=== PATIENT | female | born 1945 | race Caucasian/White ===

== ENCOUNTER 2021-08-15 14:04 | Emergency (ER) | payer MEDICARE, OTHER ==
[~2021-08-15] VITALS: Ht 162.6 cm; Wt 58.1 kg
--- NOTE | 2021-08-15 14:20 | NUR ---
nirav, from snf, more altered than usual, Hx dementia, refused to eat x 2 days. The patient is alert and oriented x1. Able to make needs known verbally. In room air and denies SOB. Respiration regular and unlabored. Attached to the monitor. Will continue to monitor the patient.
[2021-08-15] MEDS ORDERED: IV NS 0.9% 1,000 ML BAG IV ONE (14:30)
--- NOTE | 2021-08-15 14:30 | NUR ---
urine collected and sent to the lab
--- NOTE | 2021-08-15 14:50 | NUR ---
IV LINE IS ESTABLISHED, BLOOD SPECIMEN COLLECTED AND SENT TO THE LAB. THE LINE IS SALINE LOCKED.
[2021-08-15 15:03] LABS: BASOPHILS % (AUTO) 0.3 % (0.0-2.0); EOSINOPHILS % (AUTO) 0.1 % (0.0-6.0); HEMATOCRIT 37 % (33-45); HEMOGLOBIN 12.2 g/dL (11.5-14.8); LYMPHOCYTES # (AUTO) 1.5 K/uL (0.8-4.8); LYMPHOCYTES % (AUTO) 12.6 % (20.0-44.0); MEAN CORPUSCULAR HGB CONC 33 g/dl (31.0-36.0); MEAN CORPUSCULAR VOLUME 88 fL (82-100); MONOCYTES # (AUTO) 0.7 K/uL (0.1-1.30); MONOCYTES % (AUTO) 5.6 % (2.0-12.0); NEUTROPHILS # (AUTO) 9.7 K/uL (1.8-8.9); NEUTROPHILS % (AUTO) 81.4 % (43.0-81.0); PLATELET COUNT (AUTO) 275 K/uL (150-450); RED BLOOD CELL COUNT(AUTO) 4.23 MIL/uL (4.0-5.2)
[2021-08-15 15:16] LABS: BILIRUBIN,URINE NEGATIVE (NEGATIVE); COLOR,URINE YELLOW (YELLOW); LEUKOCYTE ESTERASE ,URINE NEGATIVE (NEGATIVE); NITRITE, URINE NEGATIVE (NEGATIVE); PH,URINE 6.5 (5.0-8.0); PROTEIN,URINE NEGATIVE (NEGATIVE); UGLUCOSE NEGATIVE (NEGATIVE); UROBILINOGEN,URINE 0.2 EU/dL (0.2)
--- NOTE | 2021-08-15 15:29 | NUR ---
COVID SWAB DONE AND SENT TO LAB
[2021-08-15 15:36] LABS: BACTERIA,URINE 1+ /HPF (None Seen); WBC,URINE 0-2 /HPF (0-3)
[2021-08-15] MEDS ORDERED: diphenhydrAMINE HCL 50 MG/ML VIAL ONE (15:38)
[2021-08-15] MEDS ORDERED: HALOPERIDOL LACTATE INJ 5 MG/ML VIAL ONE (15:38)
[2021-08-15] MEDS ORDERED: LORAZEPAM INJ 2 MG/ML VIAL ONE ×2 (15:39→18:11)
[2021-08-15] MEDS ORDERED: diphenhydrAMINE HCL 50 MG/ML VIAL IV ONE (16:00)
[2021-08-15] MEDS ORDERED: LORAZEPAM INJ 2 MG/ML VIAL IVP ONE (16:00)
[2021-08-15] MEDS ORDERED: HALOPERIDOL LACTATE INJ 5 MG/ML VIAL IM ONE (16:00)
[2021-08-15 16:14] LABS: CALCIUM, SERUM 9.1 mg/dL (8.5-10.1); CARBON DIOXIDE 27 mmol/L (21-32); CHLORIDE 101 mmol/L (98-107); CREATININE 0.8 mg/dL (0.6-1.3); GLUCOSE 109 mg/dL (74-106); SODIUM SERUM 135 mmol/L (136-145); UREA NITROGEN, BLOOD 18 mg/dL (7-18)
[2021-08-15 16:29] LABS: ALANINE AMINOTRANSFERASE 15 U/L (12-78); ALBUMIN 3.8 g/dL (3.4-5.0); ALKALINE PHOSPHATASE 72 U/L (46-116); ASPARTATE AMINOTRANSFERASE 27 U/L (15-37); BILIRUBIN,TOTAL 0.4 mg/dL (0.2-1.0); TOTAL PROTEIN, SERUM 7.6 g/dL (6.4-8.2)
--- NOTE | 2021-08-15 17:15 | NUR ---
DERRICK LOPEZ [phone] LEFT VM
--- NOTE | 2021-08-15 18:01 | NUR ---
JESSICA CALLED SHE BE HERE AFTER CHANGE OF SHIFT.
--- NOTE | 2021-08-15 18:06 | NUR ---
PATIENT IS AGITATED. MADE MD AWARE.
[2021-08-15] MEDS ORDERED: LORAZEPAM INJ 2 MG/ML VIAL IV ONE (18:30)
--- NOTE | 2021-08-15 18:57 | NUR ---
PATIENT IN BED, ASLEEP, AROUSABLE BY VOICE. HOOKED TO MONITOR. VSS. KEPT WARM , SAFE AND COMFORTABLE.
--- NOTE | 2021-08-15 19:21 | NUR ---
PT RETURNED FROM CT
--- NOTE | 2021-08-15 19:22 | NUR ---
REPORT GIVEN TO MOHAN BEE FOR [facility]
--- NOTE | 2021-08-15 21:57 | NUR ---
RECEIVED CALL FROM JESSICA HURST 20 MINUTES
[2021-08-16] VITALS: BP 111/69
--- NOTE | 2021-08-16 00:37 | NUR ---
PT TO BE TRANSFERED TO [facility]. [phone].
--- NOTE | 2021-08-16 00:51 | NUR ---
REPORT GIVEN TO NURSE RAJAN. PT TO ER FIRST.
--- NOTE | 2021-08-16 00:57 | NUR ---
[facility] CALLED FOR TRANSPORT. ETA 20 MINUTES.
--- NOTE | 2021-08-16 01:16 | NUR ---
REPROT GIVEN TO EMS AT BEDSIDE
== END 2021-08-16 01:30 ==
LOC: ER 14:09
DX: F03.90 Unspecified dementia, unspecified severity, without behavioral disturbance, psychotic disturbance, mood disturbance, and anxiety (principal); R45.1 Restlessness and agitation; R91.8 Other nonspecific abnormal finding of lung field; Z20.822 Contact with and (suspected) exposure to COVID-19; F41.9 Anxiety disorder, unspecified; Z88.6 Allergy status to analgesic agent; Z88.0 Allergy status to penicillin; Z88.2 Allergy status to sulfonamides
CPT/HCPCS: 36415; 70450; 71045; 80048; 80076; 81001; 83605; 84145; 84484; 85025; 85730; 87040 ×2; 87081; 87086; 87426; 93005; 96361; 96372; 96374; 96375; 99285; J1200; J1630; J2060 ×2; J7030; C9803

== ENCOUNTER 2022-08-30 01:44 | Inpatient (IN) | payer MEDICARE, OTHER ==
[~2022-08-30] VITALS: Ht 152.4 cm; Wt 62.7 kg
--- NOTE | 2022-08-30 01:50 | NUR ---
[facility] PT IS ALERT AND ORIENTED. RR EVEN AND NON LABORED. CONNECTED TO POX AND HEART MONITOR. DENIES ANY CHEST PAIN OR SOB. VSS.
[2022-08-30] MEDS ORDERED: IV NS 0.9% 1,000 ML BAG IV ONE (02:00)
--- NOTE | 2022-08-30 02:16 | NUR ---
IV LINE ESTABLISHED, [id number]
--- NOTE | 2022-08-30 02:16 | NUR ---
BLOOD COLLECTED AND SENT TO LAB
--- NOTE | 2022-08-30 02:17 | NUR ---
URINE SAMPLE COLLECTED AND SENT TO LAB
[2022-08-30 02:30] LABS: BASOPHILS # (AUTO) 0.1 K/uL (0.0-0.2); EOSINOPHILS % (AUTO) 3.5 % (0.0-6.0); HEMATOCRIT 34 % (33-45); HEMOGLOBIN 11.3 g/dL (11.5-14.8); LYMPHOCYTES # (AUTO) 1.4 K/uL (0.8-4.8); LYMPHOCYTES % (AUTO) 17.1 % (20.0-44.0); MEAN CORPUSCULAR HGB CONC 33 g/dl (31.0-36.0); MEAN CORPUSCULAR VOLUME 86 fL (82-100); MONOCYTES # (AUTO) 0.7 K/uL (0.1-1.30); MONOCYTES % (AUTO) 8.1 % (2.0-12.0); NEUTROPHILS # (AUTO) 5.8 K/uL (1.8-8.9); NEUTROPHILS % (AUTO) 70.3 % (43.0-81.0); PLATELET COUNT (AUTO) 257 K/uL (150-450); RED BLOOD CELL COUNT(AUTO) 3.99 MIL/uL (4.0-5.2); WHITE BLOOD COUNT (AUTO) 8.3 K/uL (4.3-11.0)
[2022-08-30 02:37] LABS: BILIRUBIN,URINE NEGATIVE (NEGATIVE); COLOR,URINE YELLOW (YELLOW); LEUKOCYTE ESTERASE ,URINE NEGATIVE (NEGATIVE); NITRITE, URINE NEGATIVE (NEGATIVE); PROTEIN,URINE NEGATIVE (NEGATIVE); UGLUCOSE NEGATIVE (NEGATIVE); UROBILINOGEN,URINE 0.2 EU/dL (0.2)
[2022-08-30 02:50] LABS: ALANINE AMINOTRANSFERASE 42 U/L (12-78); ALBUMIN 3.9 g/dL (3.4-5.0); ALKALINE PHOSPHATASE 80 U/L (46-116); ASPARTATE AMINOTRANSFERASE 33 U/L (15-37); BILIRUBIN,DIRECT 0.1 mg/dL (0.0-0.2); BILIRUBIN,TOTAL 0.3 mg/dL (0.2-1.0); CALCIUM, SERUM 9.4 mg/dL (8.5-10.1); CARBON DIOXIDE 23 mmol/L (21-32); CHLORIDE 106 mmol/L (98-107); CREATININE 1.4 mg/dL (0.6-1.3); GLUCOSE 138 mg/dL (74-106); POTASSIUM 3.6 mmol/L (3.5-5.1); SODIUM SERUM 142 mmol/L (136-145); TOTAL PROTEIN, SERUM 7.6 g/dL (6.4-8.2); UREA NITROGEN, BLOOD 23 mg/dL (7-18)
[2022-08-30] MEDS ORDERED: VANCOMYCIN 1 GM in IV D5W 250 ML IV ONE (03:00)
[2022-08-30] MEDS ORDERED: CEFEPIME 1 GM in IV D5W 50 ML IV ONE (03:00)
[2022-08-30] MEDS ORDERED: VANCOMYCIN 1 GM VIAL ONE (03:05)
[2022-08-30] MEDS ORDERED: CEFEPIME 1 GM VIAL ONE (03:05)
[2022-08-30] MEDS ORDERED: MAGNESIUM HYDROXIDE 30 ML UDC PO PRN (03:30)
[2022-08-30] MEDS ORDERED: MAG HYDROX/AL HYDROX/SIMETH 30 ML UDC PO PRN (03:30)
[2022-08-30] MEDS ORDERED: ACETAMINOPHEN 325 MG TABLET PO PRN (03:30)
[2022-08-30] MEDS ORDERED: CEFEPIME 1 GM in IV D5W 50 ML IV SCH (03:30)
[2022-08-30] MEDS ORDERED: ZOLPIDEM TARTRATE 5 MG TABLET PO PRN (03:30)
[2022-08-30] MEDS ORDERED: ONDANSETRON HCL/PF 4 MG/2 ML VIAL IVP PRN (03:30)
[2022-08-30] MEDS ORDERED: Z GUARD REMEDY 4 OZ OINT TP PRN (03:30)
[2022-08-30] MEDS ORDERED: IV NS 0.9% 1,000 ML IV PRN (03:30)
--- NOTE | 2022-08-30 03:50 | NUR ---
COVID SWAB COLLECTED
--- NOTE | 2022-08-30 04:00 | NUR ---
room 314-1
--- NOTE | 2022-08-30 04:21 | NUR ---
REPORT GIVEN TO JAMES BEE FOR [facility]
--- NOTE | 2022-08-30 04:55 | NUR ---
PT AMBULATORY TO RESTROOM WITH WITH 1 PERSON ASSIST. ADLS DONE.
--- NOTE | 2022-08-30 07:41 | NUR ---
patient moved to inpatient room safely per protocol.
--- NOTE | 2022-08-30 07:45 | NUR ---
HOME IMPROVEMENT CONTRACTORMULTIPLE SPINDLE SCREW MACHINE OPERATOR NOTE RECEIVED PATIENT VIA GURNEY FROM ER AT 0745H ACCOMPANIED BY 2 ER STAFF. WITH ADMITTING DIAGNOSIS OF SYNCOPE. PATIENT IS AWAKE, A/O X2, VERBALLY RESPONSIVE, DANISH SPEAKING. PATIENT DENIES ANY PAIN AT THIS TIME. NOTED WITH IV ACCESS ON R AC #20G-SL, INTACT, PATENT AND FLUSHING WELL. BODY ASSESSMENT DONE, SKIN GENERALLY INTACT. PLACED PATIENT ON TELE MONITORING CURRENTLY SHOWING SR; HR 74. V/S WITHIN NORMAL LIMITS. SAFETY MEASURES PUT IN PLACE. BED IN LOWEST AND LOCKED POSITION; SIDE RAILS UP X2; CALL LIGHT WITHIN EASY REACH.WILL CONTINUE TO MONITOR THE PATIENT.
[2022-08-30 07:50] VITALS: BP_SYST 136; BP_SYST 143; BP_DIAS 63; BP_DIAS 69; BP_DIAS 73
[2022-08-30 11:56] VITALS: BP 143/63
[2022-08-30] MEDS ORDERED: SERT50TA PO (15:01)
[2022-08-30] MEDS ORDERED: EZET10TA16 PO (15:01)
[2022-08-30] MEDS ORDERED: QUET50TA PO (15:01)
[2022-08-30] MEDS ORDERED: BUSP5TAB3 PO (15:01)
[2022-08-30] MEDS ORDERED: OMEP20CA15 PO (15:01)
[2022-08-30] MEDS ORDERED: AMLO-212 PO (15:01)
[2022-08-30] MEDS ORDERED: SIMV10TA98 PO (15:01)
[2022-08-30] MEDS ORDERED: CLON0.1T PO (15:01)
[2022-08-30] MEDS ORDERED: DONE5TAB34 PO (15:01)
[2022-08-30] MEDS ORDERED: QUET25TA PO (15:01)
--- NOTE | 2022-08-30 15:15 | NUR ---
BOX MACHINE OPERATOR PATIENT REFUSED TELE BOX. PATIENT KEPT ON REMOVING IT. MD AWARE. WILL CONTINUE TO MONITOR THE PATIENT.
[2022-08-30 16:08] VITALS: BP 155/81
--- NOTE | 2022-08-30 19:31 | NUR ---
HORTICULTURAL NURSERY ASSISTANT CLOSING NOTES PATIENT IS AWAKE, A/O X2, VERBALLY RESPONSIVE, ESTONIAN SPEAKING. PATIENT WANDERS A LOT. PATIENT DENIES ANY PAIN AT THIS TIME. NOTED WITH IV ACCESS ON R AC #20G-SL, INTACT AND PATENT. PATIENT ON TELE MONITORING BUT PATIENT REFUSED THE TELE BOX. ALL NURSING NEEDS ATTENDED. SAFETY MEASURES MAINTAINED. BED IN LOWEST AND LOCKED POSITION; SIDE RAILS UP X2; CALL LIGHT WITHIN EASY REACH. WILL ENDORSE TO COAL SAMPLE TESTER NURSE FOR CONTINUITY OF CARE.
--- NOTE | 2022-08-30 19:40 | NUR ---
RN OPENING NOTE RECEIVED PATIENT WALKING IN THE HALLWAY; AMBULATORY WITH STEADY GAIT, ALERT AND ORIENTED X 2. GUIDED BACK ON HER ROOM. ON ROOM AIR; TOLERATING WELL. BREATHING EVEN AND NONLABORED. NOT IN ANY FORM OF RESPIRATORY OR CARDIAC DISTRESS NOTED AT THIS TIME. DENIES ANY PAIN OR DISCOMFORT. WITH IV ACCESS ON RIGHT AC 20g; PATENT, INTACT AND SALINE LOCKED. ABLE TO MAKE NEEDS KNOWN. SAFETY PRECAUTIONS IMPLEMENTED: CALL LIGHT AND TABLE WITHIN REACH, SIDE RAILS UP X 3, BED IN LOWEST LOCKED POSITION. WILL CONTINUE TO MONITOR THROUGHOUT SHIFT.
[2022-08-30 20:00] VITALS: BP 178/76
[2022-08-31] MEDS ORDERED: VANCOMYCIN HCL 0.75 GM in IV D5W 250 ML IV SCH (03:00)
[2022-08-31] MEDS ORDERED: CEFEPIME 1 GM in IV D5W 50 ML IV SCH (03:00)
--- NOTE | 2022-08-31 04:15 | NUR ---
RN NOTE PATIENT GOT CONFUSE AND PULLED IV LINE. PRESSURE DRESSING DONE.
[2022-08-31 05:57] LABS: BASOPHILS # (AUTO) 0.1 K/uL (0.0-0.2); BASOPHILS % (AUTO) 0.5 % (0.0-2.0); EOSINOPHILS % (AUTO) 0.1 % (0.0-6.0); HEMATOCRIT 36 % (33-45); HEMOGLOBIN 11.6 g/dL (11.5-14.8); LYMPHOCYTES % (AUTO) 8.8 % (20.0-44.0); MEAN CORPUSCULAR HGB CONC 32 g/dl (31.0-36.0); MEAN CORPUSCULAR VOLUME 87 fL (82-100); MONOCYTES # (AUTO) 0.7 K/uL (0.1-1.30); MONOCYTES % (AUTO) 6.2 % (2.0-12.0); NEUTROPHILS % (AUTO) 84.4 % (43.0-81.0); PLATELET COUNT (AUTO) 311 K/uL (150-450); RED BLOOD CELL COUNT(AUTO) 4.13 MIL/uL (4.0-5.2); WHITE BLOOD COUNT (AUTO) 11.9 K/uL (4.3-11.0)
[2022-08-31 06:09] LABS: CALCIUM, SERUM 9.6 mg/dL (8.5-10.1); CARBON DIOXIDE 27 mmol/L (21-32); CHLORIDE 105 mmol/L (98-107); CREATININE 1.1 mg/dL (0.6-1.3); GLUCOSE 127 mg/dL (74-106); MAGNESIUM 2.6 mg/dL (1.8-2.4); PHOSPHORUS 3.5 mg/dL (2.5-4.9); POTASSIUM 3.5 mmol/L (3.5-5.1); SODIUM SERUM 140 mmol/L (136-145); UREA NITROGEN, BLOOD 18 mg/dL (7-18)
[2022-08-31 06:16] LABS: CHOLESTEROL 137 mg/dL (<200); HDL CHOLESTEROL 64 mg/dL (40-60); LDL 69 mg/dL (0-99); TRIGLYCERIDES 48 mg/dL (30-150)
--- NOTE | 2022-08-31 06:35 | NUR ---
RN CLOSING NOTE PATIENT IN BED; AWAKE, A/O X 2. STABLE ON ROOM AIR. IN NO ACUTE DISTRESS. NO C/O ANY PAIN OR DISCOMFORT. WITH IV ACCESS ON LEFT HAND 22g; PATENT AND INTACT INFUSING WITH NS 1L RUNNING @ 100 CC/HR; FLUSHING WELL. ALL NEEDS ATTENDED. ALL DUE MEDS GIVEN ORDERED. SAFETY PRECAUTIONS MAINTAINED: CALL LIGHT AND TABLE WITHIN REACH, SIDE RAILS UP X 3, BED IN LOWEST LOCKED POSITION. ENDORSED TO MORNING SHIFT FOR CONTINUITY OF CARE.
--- NOTE | 2022-08-31 07:30 | NUR ---
RN OPENING NOTE RECEIVED PT AMBULATORY; AWAKE, A/O X 2. STABLE ON ROOM AIR. IN NO ACUTE DISTRESS. NO C/O ANY PAIN OR DISCOMFORT. WITH IV ACCESS ON LEFT HAND 22g; PATENT AND INTACT INFUSING WITH NS 1L RUNNING @ 100 CC/HR; FLUSHING WELL. ALL NEEDS ATTENDED. SAFETY PRECAUTIONS MAINTAINED: CALL LIGHT AND TABLE WITHIN REACH, SIDE RAILS UP X 3, BED IN LOWEST LOCKED POSITION. WILL ADMINISTER AL SCHEDULED MEDS, AND CONTINUE TO MONITOR.
[2022-08-31 08:00] VITALS: BP 150/70
--- NOTE | 2022-08-31 09:30 | NUR ---
RN NOTES PT PULLED OUT IV ACCESS. PT BLEEDING, PRESSURE AND DRESSING APPLIED. TRANSFERRED TO ROOM 304-1 WITH SITTER. PT NOTED WITHOUT DISTRESS.
[2022-08-31] MEDS ORDERED: DICL100G34 TP (09:57)
[2022-08-31] MEDS ORDERED: ACET-2605 PO (09:57)
--- NOTE | 2022-08-31 12:46 | NUR ---
RN NOTES [facility] REPORT GIVEN TO SARA BEE. PICKUP TIME BY TRANSPO IS AT 1400.
--- NOTE | 2022-08-31 14:13 | NUR ---
PT discharged at 1410 via transportation. discharged to [facility]. all belongings checked and reconciled. pt aox1-2, no distress noted. iv access not present. tele box not present. arm band removed. left in stable condition via gurney. health teachings and discharge instructions given to transportation staff. charge nurse aware.
== END 2022-08-31 14:42 | DRG 640 ==
LOC: ER 01:45 → TELE 04:01
PROVIDERS: ADMIT Nurse Practitioner Acute Care; ATTEND Nurse Practitioner Acute Care
DX: E86.0 Dehydration (principal); N17.0 Acute kidney failure with tubular necrosis; F03.93 Unspecified dementia, unspecified severity, with mood disturbance; E87.20 Acidosis, unspecified; D64.9 Anemia, unspecified; E86.1 Hypovolemia; I70.0 Atherosclerosis of aorta; K44.9 Diaphragmatic hernia without obstruction or gangrene; Z88.0 Allergy status to penicillin; Z88.2 Allergy status to sulfonamides; Z88.6 Allergy status to analgesic agent
CPT/HCPCS: 36415; 70450-TC; 71045-TC; 80048-TC; 80061-TC; 80076-TC; 82962-TC; 83605-TC; 83735-TC; 84100-TC; 84484-TC; 85025-TC; 87040-TC; 87081-TC; 93307-TC; 97116-TC; 97530-TC; A4223; G0378; J0692; J3370; J7030; J7060

== ENCOUNTER 2022-12-20 00:29 | Inpatient (IN) | payer MEDICARE, OTHER ==
[~2022-12-20] VITALS: Ht 167.6 cm; Wt 68.9 kg
[~2022-12-20 00:29] MED LIST: ACET-2605 PO; AMLO-212 PO; BUSP5TAB3 PO; CLON0.1T PO; DICL100G34 TP; DONE5TAB34 PO; EZET10TA16 PO; OMEP20CA15 PO; QUET25TA PO; QUET50TA PO; SERT50TA PO; SIMV10TA98 PO
[2022-12-20] MEDS ORDERED: LEVETIRACETAM (500MG) 1,000 MG in IV NS 0.9% 100 ML IV STA (00:50)
[2022-12-20] MEDS ORDERED: LEVETIRACETAM (500MG) 500 MG/5 ML VIAL IV ONE ×2 (00:55→00:57)
[2022-12-20 01:22] LABS: BASOPHILS # (AUTO) 0.1 K/uL (0.0-0.2); BASOPHILS % (AUTO) 0.9 % (0.0-2.0); EOSINOPHILS # (AUTO) 0.7 K/uL (0.0-0.7); EOSINOPHILS % (AUTO) 8.2 % (0.0-6.0); HEMATOCRIT 33 % (33-45); HEMOGLOBIN 10.6 g/dL (11.5-14.8); LYMPHOCYTES # (AUTO) 1.8 K/uL (0.8-4.8); LYMPHOCYTES % (AUTO) 20.1 % (20.0-44.0); MEAN CORPUSCULAR HEMOGLOBIN 27 PG (26.0-33.0); MEAN CORPUSCULAR HGB CONC 32 g/dl (31.0-36.0); MEAN CORPUSCULAR VOLUME 84 fL (82-100); MONOCYTES # (AUTO) 0.8 K/uL (0.1-1.30); MONOCYTES % (AUTO) 8.6 % (2.0-12.0); NEUTROPHILS # (AUTO) 5.6 K/uL (1.8-8.9); NEUTROPHILS % (AUTO) 62.2 % (43.0-81.0); PLATELET COUNT (AUTO) 283 K/uL (150-450); RED BLOOD CELL COUNT(AUTO) 3.94 MIL/uL (4.0-5.2); RED CELL DISTRIBUTION WIDTH 15.4 % (11.5-15.0)
[2022-12-20 01:29] LABS: CALCIUM, SERUM 9.1 mg/dL (8.5-10.1); CREATININE 1.1 mg/dL (0.6-1.3); POTASSIUM 3.8 mmol/L (3.5-5.1)
[2022-12-20 01:34] LABS: ALBUMIN 3.7 g/dL (3.4-5.0); BILIRUBIN,DIRECT 0.1 mg/dL (0.0-0.2); BILIRUBIN,TOTAL 0.2 mg/dL (0.2-1.0); TOTAL PROTEIN, SERUM 7.5 g/dL (6.4-8.2)
[2022-12-20 01:39] LABS: LACTIC ACID 6.6 mmol/L (0.4-2.0)
[2022-12-20 02:40] LABS: APPEARANCE,URINE CLEAR (CLEAR); BILIRUBIN,URINE NEGATIVE (NEGATIVE); BLOOD, URINE TRACE Ery/uL (NEGATIVE); COLOR,URINE YELLOW (YELLOW); KETONES,URINE NEGATIVE (NEGATIVE); LEUKOCYTE ESTERASE ,URINE NEGATIVE (NEGATIVE); NITRITE, URINE NEGATIVE (NEGATIVE); PROTEIN,URINE NEGATIVE (NEGATIVE); UGLUCOSE NEGATIVE (NEGATIVE); UROBILINOGEN,URINE 0.2 EU/dL (0.2)
[2022-12-20] MEDS ORDERED: ONDANSETRON HCL/PF 4 MG/2 ML VIAL IVP PRN (06:00)
[2022-12-20] MEDS ORDERED: ACETAMINOPHEN 325 MG TABLET PO PRN (06:00)
[2022-12-20] MEDS ORDERED: QUETIAPINE FUMARATE 25 MG TABLET PO PRN (06:00)
[2022-12-20 07:00] VITALS: BP 137/89; TEMP 98.2; O2SAT 97
[2022-12-20] MEDS: PANTOPRAZOLE 40 MG TABLET.DR PO SCH (07:30)
[2022-12-20] MEDS ORDERED: DICLOFENAC TOPICAL 100 GM TUBE TP SCH (09:00)
[2022-12-20] MEDS: LEVETIRACETAM (250 MG) 250 MG TABLET PO SCH ×2 (10:26→20:28)
[2022-12-20] MEDS: SERTRALINE HCL 50 MG TABLET PO SCH (10:26)
[2022-12-20] MEDS: QUETIAPINE FUMARATE 25 MG TABLET PO SCH ×3 (10:27→17:29)
[2022-12-20] MEDS: EZETIMIBE 10 MG TABLET PO SCH (10:27)
[2022-12-20] MEDS: busPIRone 5 MG TABLET PO SCH ×2 (10:27→17:29)
[2022-12-20] MEDS: ENOXAPARIN SODIUM 40 MG/0.4 ML DISP.SYRIN SQ SCH (10:28)
[2022-12-20] MEDS: AMLODIPINE BESYLATE 5 MG TABLET PO SCH (10:28)
[2022-12-20 11:00] LABS: IRON, SERUM 43 ug/dl (50-175); TOTAL IRON BINDING CAPACITY 392 ug/dl (250-450)
[2022-12-20] MEDS: IV NS 0.9% 1,000 ML IV PRN (12:23)
[2022-12-20 16:00] VITALS: BP 117/65; TEMP 98.3; O2SAT 94
[2022-12-20 20:00] VITALS: BP_SYST 103; BP_DIAS 43; BP_DIAS 55; TEMP 99; O2SAT 92; O2SAT 95
[2022-12-20] MEDS: SIMVASTATIN 10 MG TABLET PO SCH (21:16)
[2022-12-20] MEDS: DONEPEZIL 5 MG TABLET PO SCH (21:16)
[2022-12-21] VITALS: BP_SYST 112; BP_SYST 113; BP_DIAS 59; BP_DIAS 63; TEMP 97.9; TEMP 98.1; O2SAT 93; O2SAT 98
[2022-12-21] MEDS: IV NS 0.9% 1,000 ML IV PRN (03:46)
[2022-12-21 04:00] VITALS: BP 119/60; TEMP 98.2; O2SAT 96
[2022-12-21 06:21] LABS: BASOPHILS # (AUTO) 0.1 K/uL (0.0-0.2); BASOPHILS % (AUTO) 0.9 % (0.0-2.0); EOSINOPHILS # (AUTO) 0.4 K/uL (0.0-0.7); EOSINOPHILS % (AUTO) 6.2 % (0.0-6.0); HEMATOCRIT 34 % (33-45); HEMOGLOBIN 10.9 g/dL (11.5-14.8); LYMPHOCYTES # (AUTO) 1.3 K/uL (0.8-4.8); LYMPHOCYTES % (AUTO) 18.6 % (20.0-44.0); MEAN CORPUSCULAR HEMOGLOBIN 27 PG (26.0-33.0); MEAN CORPUSCULAR HGB CONC 32 g/dl (31.0-36.0); MEAN CORPUSCULAR VOLUME 84 fL (82-100); MONOCYTES # (AUTO) 0.8 K/uL (0.1-1.30); MONOCYTES % (AUTO) 11.5 % (2.0-12.0); NEUTROPHILS # (AUTO) 4.5 K/uL (1.8-8.9); NEUTROPHILS % (AUTO) 62.8 % (43.0-81.0); PLATELET COUNT (AUTO) 252 K/uL (150-450); RED BLOOD CELL COUNT(AUTO) 4.04 MIL/uL (4.0-5.2); RED CELL DISTRIBUTION WIDTH 15.9 % (11.5-15.0); WHITE BLOOD COUNT (AUTO) 7.1 K/uL (4.3-11.0)
[2022-12-21 06:43] LABS: CREATININE 0.9 mg/dL (0.6-1.3); MAGNESIUM 2.2 mg/dL (1.8-2.4); PHOSPHORUS 4.3 mg/dL (2.5-4.9); POTASSIUM 3.6 mmol/L (3.5-5.1)
[2022-12-21 08:00] VITALS: BP 124/57; TEMP 98.2; O2SAT 95
[2022-12-21] MEDS: EZETIMIBE 10 MG TABLET PO SCH (08:36)
[2022-12-21] MEDS: SERTRALINE HCL 50 MG TABLET PO SCH (08:36)
[2022-12-21] MEDS: QUETIAPINE FUMARATE 25 MG TABLET PO SCH ×3 (08:37→17:00)
[2022-12-21] MEDS: PANTOPRAZOLE 40 MG TABLET.DR PO SCH (08:37)
[2022-12-21] MEDS: LEVETIRACETAM (250 MG) 250 MG TABLET PO SCH ×2 (08:38→21:08)
[2022-12-21] MEDS: busPIRone 5 MG TABLET PO SCH ×2 (08:38→17:00)
[2022-12-21] MEDS: AMLODIPINE BESYLATE 5 MG TABLET PO SCH (08:39)
[2022-12-21] MEDS: ENOXAPARIN SODIUM 40 MG/0.4 ML DISP.SYRIN SQ SCH (08:47)
[2022-12-21 16:00] VITALS: BP 138/72; TEMP 98.2; O2SAT 96
[2022-12-21 20:00] VITALS: BP 116/57; TEMP 97.2; O2SAT 98
[2022-12-21 20:31] VITALS: BP 116/57; TEMP 97.2; O2SAT 93
[2022-12-21] MEDS: DONEPEZIL 5 MG TABLET PO SCH (21:08)
[2022-12-21] MEDS: SIMVASTATIN 10 MG TABLET PO SCH (21:08)
[2022-12-22 00:52] VITALS: BP 141/74; TEMP 98.6; O2SAT 94
[2022-12-22] MEDS: IV NS 0.9% 1,000 ML IV PRN (04:31)
[2022-12-22 04:52] VITALS: BP 154/78; TEMP 98; O2SAT 94
[2022-12-22 07:10] LABS: BASOPHILS # (AUTO) 0.1 K/uL (0.0-0.2); BASOPHILS % (AUTO) 0.9 % (0.0-2.0); EOSINOPHILS # (AUTO) 0.5 K/uL (0.0-0.7); EOSINOPHILS % (AUTO) 6.3 % (0.0-6.0); HEMATOCRIT 33 % (33-45); HEMOGLOBIN 10.7 g/dL (11.5-14.8); LYMPHOCYTES # (AUTO) 1.2 K/uL (0.8-4.8); LYMPHOCYTES % (AUTO) 14.9 % (20.0-44.0); MEAN CORPUSCULAR HEMOGLOBIN 27 PG (26.0-33.0); MEAN CORPUSCULAR HGB CONC 33 g/dl (31.0-36.0); MEAN CORPUSCULAR VOLUME 83 fL (82-100); MONOCYTES # (AUTO) 0.8 K/uL (0.1-1.30); MONOCYTES % (AUTO) 10.2 % (2.0-12.0); NEUTROPHILS # (AUTO) 5.3 K/uL (1.8-8.9); NEUTROPHILS % (AUTO) 67.7 % (43.0-81.0); PLATELET COUNT (AUTO) 275 K/uL (150-450); RED BLOOD CELL COUNT(AUTO) 3.95 MIL/uL (4.0-5.2); RED CELL DISTRIBUTION WIDTH 15.5 % (11.5-15.0); WHITE BLOOD COUNT (AUTO) 7.8 K/uL (4.3-11.0)
[2022-12-22 07:32] LABS: CALCIUM, SERUM 9.1 mg/dL (8.5-10.1); CREATININE 1.1 mg/dL (0.6-1.3); POTASSIUM 3.7 mmol/L (3.5-5.1)
[2022-12-22] MEDS: PANTOPRAZOLE 40 MG TABLET.DR PO SCH (07:50)
[2022-12-22 08:00] VITALS: BP 137/70; TEMP 98.5; O2SAT 96
[2022-12-22] MEDS: LEVETIRACETAM (250 MG) 250 MG TABLET PO SCH ×2 (09:25→21:11)
[2022-12-22] MEDS: AMLODIPINE BESYLATE 5 MG TABLET PO SCH (09:25)
[2022-12-22] MEDS: EZETIMIBE 10 MG TABLET PO SCH (09:26)
[2022-12-22] MEDS: ENOXAPARIN SODIUM 40 MG/0.4 ML DISP.SYRIN SQ SCH (09:26)
[2022-12-22] MEDS: SERTRALINE HCL 50 MG TABLET PO SCH (09:26)
[2022-12-22] MEDS: QUETIAPINE FUMARATE 25 MG TABLET PO SCH ×3 (09:26→16:52)
[2022-12-22] MEDS: busPIRone 5 MG TABLET PO SCH ×2 (09:26→16:52)
[2022-12-22 16:00] VITALS: BP 87/58; TEMP 98.6; O2SAT 99
[2022-12-22 20:00] VITALS: BP 133/65; TEMP 98.3; O2SAT 94
[2022-12-22] MEDS: DONEPEZIL 5 MG TABLET PO SCH (21:11)
[2022-12-22] MEDS: SIMVASTATIN 10 MG TABLET PO SCH (21:11)
[2022-12-23 07:00] VITALS: BP 152/71; TEMP 98.1; O2SAT 96
[2022-12-23] MEDS: SERTRALINE HCL 50 MG TABLET PO SCH (08:43)
[2022-12-23] MEDS: EZETIMIBE 10 MG TABLET PO SCH (08:43)
[2022-12-23] MEDS: busPIRone 5 MG TABLET PO SCH (08:43)
[2022-12-23] MEDS: QUETIAPINE FUMARATE 25 MG TABLET PO SCH ×2 (08:43→12:16)
[2022-12-23] MEDS: PANTOPRAZOLE 40 MG TABLET.DR PO SCH (08:43)
[2022-12-23 08:44] VITALS: BP 152/71
[2022-12-23] MEDS: AMLODIPINE BESYLATE 5 MG TABLET PO SCH (08:44)
[2022-12-23] MEDS: LEVETIRACETAM (250 MG) 250 MG TABLET PO SCH (08:44)
[2022-12-23] MEDS: ENOXAPARIN SODIUM 40 MG/0.4 ML DISP.SYRIN SQ SCH (08:47)
[2022-12-23] MEDS ORDERED: LEVE250T2 PO (12:26)
== END 2022-12-23 15:00 | DRG 100 ==
LOC: ER 00:31 → TELE 07:45 → MED 12-22 14:01
PROVIDERS: ADMIT Internal Medicine; ATTEND Nurse Practitioner Acute Care
DX: G40.409 Other generalized epilepsy and epileptic syndromes, not intractable, without status epilepticus (principal); G93.41 Metabolic encephalopathy; F03.93 Unspecified dementia, unspecified severity, with mood disturbance; F03.94 Unspecified dementia, unspecified severity, with anxiety; F03.92 Unspecified dementia, unspecified severity, with psychotic disturbance; N17.9 Acute kidney failure, unspecified; E87.20 Acidosis, unspecified; E78.5 Hyperlipidemia, unspecified; Z20.822 Contact with and (suspected) exposure to COVID-19; F41.9 Anxiety disorder, unspecified; K21.9 Gastro-esophageal reflux disease without esophagitis; Z88.6 Allergy status to analgesic agent; Z88.5 Allergy status to narcotic agent; Z88.0 Allergy status to penicillin; Z88.2 Allergy status to sulfonamides; F32.A Depression, unspecified; I10 Essential (primary) hypertension; D64.9 Anemia, unspecified; R73.9 Hyperglycemia, unspecified; F39 Unspecified mood [affective] disorder; M19.90 Unspecified osteoarthritis, unspecified site; S01.512A Laceration without foreign body of oral cavity, initial encounter; X58.XXXA Exposure to other specified factors, initial encounter; Y92.9 Unspecified place or not applicable; Z79.899 Other long term (current) drug therapy
CPT/HCPCS: 36415; 70450-TC; 71045-TC; 80048-TC; 80076-TC; 82330; 82962-TC; 83540-TC; 83605-TC; 83735-TC; 84100-TC; 85025-TC; 85652-TC; 95819-TC; 97110-TC; 97112-TC; 97116-TC; A4223; G0378; J1650; J1953; J7030

== ENCOUNTER 2023-02-04 16:59 | Inpatient (IN) | payer MEDICARE, OTHER ==
[~2023-02-04] VITALS: Ht 157.5 cm; Wt 58.1 kg
[~2023-02-04 16:59] MED LIST changes: +LEVE250T2 PO
[2023-02-04] MEDS ORDERED: PANTOPRAZOLE 80 MG in IV NS 0.9% 500 ML IV ONE (17:30)
[2023-02-04] MEDS ORDERED: ONDANSETRON HCL/PF 4 MG/2 ML VIAL IVP ONE (17:30)
[2023-02-04] MEDS ORDERED: PANTOPRAZOLE 80 MG in IV NS 0.9% 100 ML IV ONE (17:30)
[2023-02-04] MEDS ORDERED: CRAN425C6 PO (17:36)
[2023-02-04] MEDS ORDERED: CHOL100043 PO (17:36)
[2023-02-04] MEDS ORDERED: MAGN400O6 PO (17:36)
[2023-02-04] MEDS ORDERED: ONDANSETRON HCL/PF 4 MG/2 ML VIAL ONE (17:47)
[2023-02-04 18:30] LABS: MEAN CORPUSCULAR VOLUME 84 fL (82-100); RED CELL DISTRIBUTION WIDTH 17.6 % (11.5-15.0)
[2023-02-04] MEDS ORDERED: ACETAMINOPHEN 650 MG/SUPP.RECT RC ONE ×2 (18:30→18:49)
[2023-02-04 18:42] LABS: APPEARANCE,URINE CLOUDY (CLEAR); BILIRUBIN,URINE NEGATIVE (NEGATIVE); BLOOD, URINE 1+ Ery/uL (NEGATIVE); COLOR,URINE YELLOW (YELLOW); KETONES,URINE TRACE mg/dL (NEGATIVE); LEUKOCYTE ESTERASE ,URINE NEGATIVE (NEGATIVE); NITRITE, URINE NEGATIVE (NEGATIVE); PH,URINE 5.5 (5.0-8.0); PROTEIN,URINE 1+ mg/dl (NEGATIVE); UGLUCOSE NEGATIVE (NEGATIVE); UROBILINOGEN,URINE 0.2 EU/dL (0.2)
[2023-02-04 18:46] LABS: BASOPHILS % (AUTO) 0.2 % (0.0-2.0); HEMATOCRIT 38 % (33-45); HEMOGLOBIN 11.9 g/dL (11.5-14.8); LYMPHOCYTES # (AUTO) 0.8 K/uL (0.8-4.8); LYMPHOCYTES % (AUTO) 3.6 % (20.0-44.0); MEAN CORPUSCULAR HEMOGLOBIN 27 PG (26.0-33.0); MEAN CORPUSCULAR HGB CONC 32 g/dl (31.0-36.0); MONOCYTES # (AUTO) 1.4 K/uL (0.1-1.30); MONOCYTES % (AUTO) 6.2 % (2.0-12.0); NEUTROPHILS # (AUTO) 20.5 K/uL (1.8-8.9); PLATELET COUNT (AUTO) 319 K/uL (150-450); RED BLOOD CELL COUNT(AUTO) 4.49 MIL/uL (4.0-5.2); WHITE BLOOD COUNT (AUTO) 22.8 K/uL (4.3-11.0)
[2023-02-04 18:53] LABS: CALCIUM, SERUM 9.6 mg/dL (8.5-10.1); CARBON DIOXIDE 21 mmol/L (21-32); CHLORIDE 105 mmol/L (98-107); CREATININE 1.2 mg/dL (0.6-1.3); GLUCOSE 153 mg/dL (74-106); POTASSIUM 3.4 mmol/L (3.5-5.1); SODIUM SERUM 140 mmol/L (136-145); UREA NITROGEN, BLOOD 22 mg/dL (7-18)
[2023-02-04 18:59] LABS: ALANINE AMINOTRANSFERASE 28 U/L (12-78); ALBUMIN 4.3 g/dL (3.4-5.0); ALKALINE PHOSPHATASE 86 U/L (46-116); ASPARTATE AMINOTRANSFERASE 23 U/L (15-37); BILIRUBIN,DIRECT 0.2 mg/dL (0.0-0.2); BILIRUBIN,TOTAL 0.5 mg/dL (0.2-1.0); TOTAL PROTEIN, SERUM 8.4 g/dL (6.4-8.2)
[2023-02-04 19:00] LABS: ALCOHOL, BLOOD < 3 mg/dL (0-10)
[2023-02-04 19:05] LABS: THYROID STIMULATING HORMONE 3.787 uIU/mL (0.358-3.74)
[2023-02-04 19:24] LABS: ADD URINE CULTURE NO; BACTERIA,URINE None seen /HPF (None Seen); WBC,URINE 0-2 /HPF (0-3)
[2023-02-04 19:25] LABS: MUCUS,URINE Few /LPF (None Seen); TYROSINE CRYSTAL,URINE Moderate /HPF (None Seen); URIC ACID CRYSTALS,URINE Many /HPF (None Seen)
[2023-02-04 20:43] LABS: ANISOCYTOSIS 1+; BAND % (MANUAL) 4 % (0.0-5.0); LYMPHOCYTES % (MANUAL) 5 % (16-48); MONOCYTES % (MANUAL) 2 % (0-11.0); NEUTROPHILS % (MANUAL) 89 (42-76); PLATELET ESTIMATE NPA
[2023-02-04] MEDS ORDERED: ONDANSETRON HCL/PF 4 MG/2 ML VIAL IVP PRN (23:00)
[2023-02-04] MEDS ORDERED: Z GUARD REMEDY 4 OZ OINT TP PRN (23:00)
[2023-02-04] MEDS ORDERED: QUETIAPINE FUMARATE 25 MG TABLET PO PRN (23:00)
[2023-02-04] MEDS ORDERED: ACETAMINOPHEN 325 MG TABLET PO PRN (23:00)
[2023-02-04 23:22] LABS: HEMATOCRIT 27 % (33-45); MEAN CORPUSCULAR HEMOGLOBIN 29 PG (26.0-33.0); MEAN CORPUSCULAR HGB CONC 34 g/dl (31.0-36.0); MEAN CORPUSCULAR VOLUME 87 fL (82-100); PLATELET COUNT (AUTO) 270 K/uL (150-450); RED BLOOD CELL COUNT(AUTO) 3.05 MIL/uL (4.0-5.2); RED CELL DISTRIBUTION WIDTH 13.5 % (11.5-15.0); WHITE BLOOD COUNT (AUTO) 7.7 K/uL (4.3-11.0)
[2023-02-04] MEDS ORDERED: LEVOFLOXACIN 500 MG /D5W 100ML 500 MG in PREMIX 1 EA IV SCH (23:30)
[2023-02-05] VITALS: BP 161/58; TEMP 98.4; O2SAT 98
[2023-02-05] MEDS: IV NS 0.9% 1,000 ML IV PRN ×2 (00:01→17:18)
[2023-02-05 04:00] VITALS: BP 157/62; TEMP 97.3; O2SAT 96
[2023-02-05] MEDS ORDERED: POTASSIUM CHLORIDE 20 MEQ TAB.PRT.SR PO ONE (04:30)
[2023-02-05] MEDS ORDERED: POTASSIUM CHLORIDE 10 MEQ/50 ML PREMIXED IVPB FOR PERIPHERAL LINE IV ONE (05:00)
[2023-02-05] MEDS: POTASSIUM CL. PREMIX PERIPHER. 50 ML IV SCH ×4 (05:59→09:47)
[2023-02-05 06:16] LABS: HEMATOCRIT 34 % (33-45); MEAN CORPUSCULAR HEMOGLOBIN 27 PG (26.0-33.0); MEAN CORPUSCULAR HGB CONC 32 g/dl (31.0-36.0); MEAN CORPUSCULAR VOLUME 84 fL (82-100); PLATELET COUNT (AUTO) 279 K/uL (150-450); RED BLOOD CELL COUNT(AUTO) 4.09 MIL/uL (4.0-5.2); RED CELL DISTRIBUTION WIDTH 17.8 % (11.5-15.0); WHITE BLOOD COUNT (AUTO) 20.1 K/uL (4.3-11.0)
[2023-02-05 06:21] LABS: BASOPHILS % (AUTO) 0.2 % (0.0-2.0); HEMATOCRIT 34 % (33-45); HEMOGLOBIN 10.9 g/dL (11.5-14.8); LYMPHOCYTES # (AUTO) 0.8 K/uL (0.8-4.8); LYMPHOCYTES % (AUTO) 3.7 % (20.0-44.0); MEAN CORPUSCULAR HEMOGLOBIN 27 PG (26.0-33.0); MEAN CORPUSCULAR HGB CONC 32 g/dl (31.0-36.0); MEAN CORPUSCULAR VOLUME 84 fL (82-100); MONOCYTES # (AUTO) 1.1 K/uL (0.1-1.30); MONOCYTES % (AUTO) 5.3 % (2.0-12.0); NEUTROPHILS # (AUTO) 18.5 K/uL (1.8-8.9); NEUTROPHILS % (AUTO) 90.8 % (43.0-81.0); PLATELET COUNT (AUTO) 285 K/uL (150-450); RED BLOOD CELL COUNT(AUTO) 4.09 MIL/uL (4.0-5.2); RED CELL DISTRIBUTION WIDTH 17.8 % (11.5-15.0); WHITE BLOOD COUNT (AUTO) 20.4 K/uL (4.3-11.0)
[2023-02-05 06:41] LABS: CARBON DIOXIDE 19 mmol/L (21-32); CHLORIDE 110 mmol/L (98-107); CREATININE 1.4 mg/dL (0.6-1.3); GLUCOSE 122 mg/dL (74-106); MAGNESIUM 2.5 mg/dL (1.8-2.4); SODIUM SERUM 142 mmol/L (136-145); UREA NITROGEN, BLOOD 26 mg/dL (7-18)
[2023-02-05 06:45] LABS: IRON, SERUM 33 ug/dl (50-175); TOTAL IRON BINDING CAPACITY 426 ug/dl (250-450)
[2023-02-05 06:53] LABS: CHOLESTEROL 119 mg/dL (<200); HDL CHOLESTEROL 58 mg/dL (40-60); LDL 55 mg/dL (0-99); THYROID STIMULATING HORMONE 3.678 uIU/mL (0.358-3.74); TRIGLYCERIDES 45 mg/dL (30-150)
[2023-02-05 08:00] VITALS: BP 115/64; TEMP 99; O2SAT 99
[2023-02-05] MEDS: QUETIAPINE FUMARATE 25 MG TABLET PO SCH ×3 (08:02→16:17)
[2023-02-05] MEDS: EZETIMIBE 10 MG TABLET PO SCH (08:11)
[2023-02-05] MEDS: AMLODIPINE BESYLATE 5 MG TABLET PO SCH (08:12)
[2023-02-05] MEDS: busPIRone 5 MG TABLET PO SCH ×2 (08:13→16:17)
[2023-02-05] MEDS: SERTRALINE HCL 50 MG TABLET PO SCH (08:14)
[2023-02-05] MEDS: PANTOPRAZOLE 40 MG VIAL IV SCH ×2 (08:21→21:35)
[2023-02-05 11:03] LABS: HEMATOCRIT 32 % (33-45); HEMOGLOBIN 10.5 g/dL (11.5-14.8); MEAN CORPUSCULAR HEMOGLOBIN 27 PG (26.0-33.0); MEAN CORPUSCULAR HGB CONC 33 g/dl (31.0-36.0); MEAN CORPUSCULAR VOLUME 81 fL (82-100); PLATELET COUNT (AUTO) 267 K/uL (150-450); RED BLOOD CELL COUNT(AUTO) 3.98 MIL/uL (4.0-5.2); RED CELL DISTRIBUTION WIDTH 17.4 % (11.5-15.0); WHITE BLOOD COUNT (AUTO) 19.2 K/uL (4.3-11.0)
[2023-02-05 12:00] VITALS: BP 124/67; TEMP 98.6; O2SAT 100
[2023-02-05 16:00] VITALS: BP 134/48; TEMP 99.5; O2SAT 98
[2023-02-05 16:23] LABS: HEMATOCRIT 32 % (33-45); HEMOGLOBIN 10.2 g/dL (11.5-14.8); MEAN CORPUSCULAR HEMOGLOBIN 27 PG (26.0-33.0); MEAN CORPUSCULAR HGB CONC 32 g/dl (31.0-36.0); MEAN CORPUSCULAR VOLUME 84 fL (82-100); PLATELET COUNT (AUTO) 249 K/uL (150-450); RED BLOOD CELL COUNT(AUTO) 3.77 MIL/uL (4.0-5.2); RED CELL DISTRIBUTION WIDTH 17.9 % (11.5-15.0); WHITE BLOOD COUNT (AUTO) 18.6 K/uL (4.3-11.0)
[2023-02-05 20:00] VITALS: BP 129/52; TEMP 97.4; O2SAT 95
[2023-02-05] MEDS: SIMVASTATIN 10 MG TABLET PO SCH (21:35)
[2023-02-05] MEDS: DONEPEZIL 5 MG TABLET PO SCH (21:35)
[2023-02-05] MEDS: LEVOFLOXACIN 250 MG /D5W 50 ML 250 MG in PREMIX 1 EA IV SCH (23:18)
[2023-02-06] VITALS: BP 145/56; TEMP 97.6; O2SAT 96
[2023-02-06 04:00] VITALS: BP 138/61; TEMP 98.2; O2SAT 97
[2023-02-06] MEDS: IV NS 0.9% 1,000 ML IV PRN ×2 (06:00→20:29)
[2023-02-06 06:20] LABS: BASOPHILS % (AUTO) 0.2 % (0.0-2.0); HEMATOCRIT 33 % (33-45); HEMOGLOBIN 10.4 g/dL (11.5-14.8); LYMPHOCYTES # (AUTO) 1.4 K/uL (0.8-4.8); LYMPHOCYTES % (AUTO) 8.7 % (20.0-44.0); MEAN CORPUSCULAR HEMOGLOBIN 27 PG (26.0-33.0); MEAN CORPUSCULAR HGB CONC 31 g/dl (31.0-36.0); MEAN CORPUSCULAR VOLUME 86 fL (82-100); MONOCYTES # (AUTO) 1.3 K/uL (0.1-1.30); MONOCYTES % (AUTO) 8.1 % (2.0-12.0); NEUTROPHILS # (AUTO) 13.5 K/uL (1.8-8.9); PLATELET COUNT (AUTO) 250 K/uL (150-450); RED BLOOD CELL COUNT(AUTO) 3.86 MIL/uL (4.0-5.2); RED CELL DISTRIBUTION WIDTH 18.7 % (11.5-15.0); WHITE BLOOD COUNT (AUTO) 16.3 K/uL (4.3-11.0)
[2023-02-06 06:49] LABS: CALCIUM, SERUM 8.5 mg/dL (8.5-10.1); CARBON DIOXIDE 21 mmol/L (21-32); CHLORIDE 113 mmol/L (98-107); GLUCOSE 92 mg/dL (74-106); POTASSIUM 3.4 mmol/L (3.5-5.1); SODIUM SERUM 145 mmol/L (136-145); UREA NITROGEN, BLOOD 24 mg/dL (7-18)
[2023-02-06 08:00] VITALS: BP 148/57; TEMP 98.8; O2SAT 96
[2023-02-06] MEDS: AMLODIPINE BESYLATE 5 MG TABLET PO SCH (08:48)
[2023-02-06] MEDS: SERTRALINE HCL 50 MG TABLET PO SCH (08:48)
[2023-02-06] MEDS: QUETIAPINE FUMARATE 25 MG TABLET PO SCH ×3 (08:48→17:55)
[2023-02-06] MEDS: busPIRone 5 MG TABLET PO SCH ×2 (08:49→17:55)
[2023-02-06] MEDS: PANTOPRAZOLE 40 MG VIAL IV SCH ×2 (08:49→21:25)
[2023-02-06] MEDS: EZETIMIBE 10 MG TABLET PO SCH (08:49)
[2023-02-06] MEDS: POTASSIUM CL. PREMIX PERIPHER. 50 ML IV SCH ×2 (10:02→11:04)
[2023-02-06 12:00] VITALS: BP 136/59; TEMP 98.7; O2SAT 99
[2023-02-06 16:00] VITALS: BP 134/83; TEMP 98.5; O2SAT 98
[2023-02-06 20:00] VITALS: BP 138/57; TEMP 98.5; O2SAT 96
[2023-02-06] MEDS: DONEPEZIL 5 MG TABLET PO SCH (21:25)
[2023-02-06] MEDS: SIMVASTATIN 10 MG TABLET PO SCH (21:25)
[2023-02-06] MEDS: LEVOFLOXACIN 250 MG /D5W 50 ML 250 MG in PREMIX 1 EA IV SCH (22:00)
[2023-02-07] VITALS: BP 138/57; TEMP 98.5; O2SAT 96
[2023-02-07 04:00] VITALS: BP 165/71; TEMP 97.8; O2SAT 96
[2023-02-07 08:00] VITALS: BP 148/67; TEMP 98; O2SAT 100
[2023-02-07] MEDS: SERTRALINE HCL 50 MG TABLET PO SCH (10:18)
[2023-02-07] MEDS: PANTOPRAZOLE 40 MG VIAL IV SCH ×2 (10:18→21:32)
[2023-02-07] MEDS: busPIRone 5 MG TABLET PO SCH ×2 (10:19→18:10)
[2023-02-07] MEDS: EZETIMIBE 10 MG TABLET PO SCH (10:19)
[2023-02-07] MEDS: QUETIAPINE FUMARATE 25 MG TABLET PO SCH ×3 (10:19→18:10)
[2023-02-07] MEDS: AMLODIPINE BESYLATE 5 MG TABLET PO SCH (10:20)
[2023-02-07] MEDS ORDERED: IV NS 0.9% 1,000 ML IV PRN (12:18)
[2023-02-07 16:00] VITALS: BP 130/65; TEMP 98.5; O2SAT 100
[2023-02-07 20:00] VITALS: BP 129/66; TEMP 97.8; O2SAT 95
[2023-02-07] MEDS: DONEPEZIL 5 MG TABLET PO SCH (21:33)
[2023-02-07] MEDS: SIMVASTATIN 10 MG TABLET PO SCH (21:33)
[2023-02-07] MEDS: LEVOFLOXACIN 250 MG /D5W 50 ML 250 MG in PREMIX 1 EA IV SCH ×2 (22:39→23:42)
[2023-02-08 04:00] VITALS: BP 140/59; TEMP 97.6; O2SAT 95
[2023-02-08 07:17] LABS: BASOPHILS % (AUTO) 0.5 % (0.0-2.0); EOSINOPHILS # (AUTO) 0.2 K/uL (0.0-0.7); EOSINOPHILS % (AUTO) 2.8 % (0.0-6.0); HEMATOCRIT 34 % (33-45); HEMOGLOBIN 11.2 g/dL (11.5-14.8); LYMPHOCYTES # (AUTO) 1.1 K/uL (0.8-4.8); LYMPHOCYTES % (AUTO) 13.9 % (20.0-44.0); MEAN CORPUSCULAR HEMOGLOBIN 27 PG (26.0-33.0); MEAN CORPUSCULAR HGB CONC 33 g/dl (31.0-36.0); MEAN CORPUSCULAR VOLUME 84 fL (82-100); MONOCYTES # (AUTO) 0.7 K/uL (0.1-1.30); NEUTROPHILS % (AUTO) 73.8 % (43.0-81.0); PLATELET COUNT (AUTO) 256 K/uL (150-450); RED CELL DISTRIBUTION WIDTH 17.2 % (11.5-15.0); WHITE BLOOD COUNT (AUTO) 8.1 K/uL (4.3-11.0)
[2023-02-08 07:32] LABS: CARBON DIOXIDE 23 mmol/L (21-32); CHLORIDE 109 mmol/L (98-107); CREATININE 0.8 mg/dL (0.6-1.3); GLUCOSE 91 mg/dL (74-106); POTASSIUM 2.9 mmol/L (3.5-5.1); SODIUM SERUM 144 mmol/L (136-145); UREA NITROGEN, BLOOD 16 mg/dL (7-18)
[2023-02-08] MEDS: SERTRALINE HCL 50 MG TABLET PO SCH (08:59)
[2023-02-08] MEDS: EZETIMIBE 10 MG TABLET PO SCH (08:59)
[2023-02-08] MEDS: QUETIAPINE FUMARATE 25 MG TABLET PO SCH ×2 (08:59→14:19)
[2023-02-08] MEDS: busPIRone 5 MG TABLET PO SCH (08:59)
[2023-02-08] MEDS: AMLODIPINE BESYLATE 5 MG TABLET PO SCH (09:00)
[2023-02-08] MEDS ORDERED: POTASSIUM CHLORIDE 20 MEQ TAB.PRT.SR PO SCH (09:00)
[2023-02-08] MEDS: PANTOPRAZOLE 40 MG VIAL IV SCH (09:23)
[2023-02-08 10:10] VITALS: BP 156/69; TEMP 98.2; O2SAT 96
[2023-02-08] MEDS ORDERED: PANT40TA2 PO (11:49)
[2023-02-08] MEDS ORDERED: DOXY-326 PO (11:49)
[2023-02-08] MEDS ORDERED: LEVOFLOXACIN (250MG) 250 MG TABLET PO SCH (20:00)
== END 2023-02-08 16:30 | DRG 177 ==
LOC: ER 17:09 → TELE1 22:06 → MEDSG1 02-06 13:47
PROVIDERS: ADMIT Nurse Practitioner Acute Care; ATTEND Internal Medicine
DX: J69.0 Pneumonitis due to inhalation of food and vomit (principal); G93.41 Metabolic encephalopathy; N17.0 Acute kidney failure with tubular necrosis; Z20.822 Contact with and (suspected) exposure to COVID-19; F03.90 Unspecified dementia, unspecified severity, without behavioral disturbance, psychotic disturbance, mood disturbance, and anxiety; Z88.6 Allergy status to analgesic agent; Z88.5 Allergy status to narcotic agent; Z88.0 Allergy status to penicillin; Z88.2 Allergy status to sulfonamides; Z79.899 Other long term (current) drug therapy; I10 Essential (primary) hypertension; E78.5 Hyperlipidemia, unspecified; M19.90 Unspecified osteoarthritis, unspecified site; E03.8 Other specified hypothyroidism; D72.829 Elevated white blood cell count, unspecified; E87.6 Hypokalemia; K44.9 Diaphragmatic hernia without obstruction or gangrene; D64.9 Anemia, unspecified
CPT/HCPCS: 36415; 70450-TC; 71045-TC; 71250-TC; 80048-TC; 80061-TC; 80076-TC; 81001; 83540-TC; 83735-TC; 83880; 84100-TC; 84443-TC; 84484-TC; 85025-TC; 85027-TC; 85045-TC; 87086-TC; 97110-TC; 97116-TC; 97530-TC; A4216; A4223; C9113; C9803; G0378; G0480; J1956; J2405; J3480; J7030; J7040

== ENCOUNTER 2023-06-05 15:32 | Inpatient (IN) | payer MEDICARE, OTHER ==
[~2023-06-05] VITALS: Ht 162.6 cm; Wt 59.0 kg
[~2023-06-05 15:32] MED LIST changes: +CHOL100043 PO; +CRAN425C6 PO; +DOXY-326 PO; -LEVE250T2 PO; +MAGN400O6 PO; -OMEP20CA15 PO; +PANT40TA2 PO
[2023-06-05 16:14] LABS: BASOPHILS # (AUTO) 0.1 K/uL (0.0-0.2); EOSINOPHILS # (AUTO) 0.8 K/uL (0.0-0.7); EOSINOPHILS % (AUTO) 8.9 % (0.0-6.0); HEMATOCRIT 33 % (33-45); HEMOGLOBIN 10.9 g/dL (11.5-14.8); LYMPHOCYTES # (AUTO) 1.5 K/uL (0.8-4.8); LYMPHOCYTES % (AUTO) 16.4 % (20.0-44.0); MEAN CORPUSCULAR HEMOGLOBIN 28 PG (26.0-33.0); MEAN CORPUSCULAR HGB CONC 33 g/dl (31.0-36.0); MEAN CORPUSCULAR VOLUME 85 fL (82-100); MONOCYTES # (AUTO) 0.9 K/uL (0.1-1.30); MONOCYTES % (AUTO) 10.3 % (2.0-12.0); NEUTROPHILS # (AUTO) 5.8 K/uL (1.8-8.9); NEUTROPHILS % (AUTO) 63.4 % (43.0-81.0); PLATELET COUNT (AUTO) 250 K/uL (150-450); RED BLOOD CELL COUNT(AUTO) 3.83 MIL/uL (4.0-5.2); RED CELL DISTRIBUTION WIDTH 16.6 % (11.5-15.0); WHITE BLOOD COUNT (AUTO) 9.1 K/uL (4.3-11.0)
[2023-06-05] MEDS ORDERED: LORAZEPAM INJ 2 MG/ML VIAL ONE (16:16)
[2023-06-05] MEDS: LORAZEPAM INJ 2 MG/ML VIAL IV ONE (16:20)
[2023-06-05 16:34] LABS: ALANINE AMINOTRANSFERASE 19 U/L (12-78); ALBUMIN 3.6 g/dL (3.4-5.0); ALKALINE PHOSPHATASE 76 U/L (46-116); ASPARTATE AMINOTRANSFERASE 22 U/L (15-37); BILIRUBIN,DIRECT 0.1 mg/dL (0.0-0.2); BILIRUBIN,TOTAL 0.4 mg/dL (0.2-1.0); CALCIUM, SERUM 9.6 mg/dL (8.5-10.1); CARBON DIOXIDE 23 mmol/L (21-32); CHLORIDE 106 mmol/L (98-107); CREATININE 1.1 mg/dL (0.6-1.3); GLUCOSE 99 mg/dL (74-106); POTASSIUM 2.9 mmol/L (3.5-5.1); SODIUM SERUM 140 mmol/L (136-145); TOTAL PROTEIN, SERUM 7.5 g/dL (6.4-8.2); UREA NITROGEN, BLOOD 20 mg/dL (7-18)
[2023-06-05] MEDS ORDERED: POTASSIUM CHLORIDE 20 MEQ TAB.PRT.SR PO ONE (17:18)
[2023-06-05] MEDS: POTASSIUM CHLORIDE 20 MEQ TAB.PRT.SR PO ONE (17:25)
[2023-06-05 17:37] LABS: APPEARANCE,URINE CLEAR (CLEAR); BILIRUBIN,URINE NEGATIVE (NEGATIVE); BLOOD, URINE NEGATIVE Ery/uL (NEGATIVE); COLOR,URINE YELLOW (YELLOW); KETONES,URINE NEGATIVE (NEGATIVE); LEUKOCYTE ESTERASE ,URINE NEGATIVE (NEGATIVE); NITRITE, URINE NEGATIVE (NEGATIVE); PROTEIN,URINE NEGATIVE (NEGATIVE); UGLUCOSE NEGATIVE (NEGATIVE); UROBILINOGEN,URINE 0.2 EU/dL (0.2)
[2023-06-05] MEDS ORDERED: MELA5TAB PO (18:18)
[2023-06-05] MEDS ORDERED: LORA-258 PO (18:18)
[2023-06-05] MEDS ORDERED: PHEN26CR2 RC (18:18)
[2023-06-05] MEDS ORDERED: LEVE500T20 PO (18:18)
[2023-06-05] MEDS ORDERED: FOLI0.4T6 PO (18:18)
[2023-06-05] MEDS ORDERED: DOCU-141 PO (18:18)
[2023-06-05] MEDS ORDERED: PANT40TA49 PO (18:18)
[2023-06-05] MEDS ORDERED: CALC500T53 PO (18:18)
[2023-06-05] MEDS ORDERED: FERR325T24 PO (18:18)
[2023-06-05] MEDS ORDERED: LACT1CAP7 PO (18:18)
[2023-06-05] MEDS ORDERED: ANAS1TAB50 PO (18:18)
[2023-06-05] MEDS ORDERED: ACET-868 PO (18:18)
[2023-06-05] MEDS ORDERED: Z GUARD REMEDY 4 OZ OINT TP PRN (19:30)
[2023-06-05] MEDS ORDERED: ONDANSETRON HCL/PF 4 MG/2 ML VIAL IVP PRN (19:30)
[2023-06-05] MEDS ORDERED: MAGNESIUM HYDROXIDE 30 ML UDC PO PRN ×2 (19:30)
[2023-06-05] MEDS ORDERED: ACETAMINOPHEN 325 MG TABLET PO PRN ×2 (19:30)
[2023-06-05] MEDS ORDERED: CLONIDINE HCL 0.1 MG TABLET PO PRN (19:30)
[2023-06-05] MEDS ORDERED: MAG HYDROX/AL HYDROX/SIMETH 30 ML UDC PO PRN (19:30)
[2023-06-05 21:52] VITALS: BP 122/92; TEMP 98.6; O2SAT 100
[2023-06-05] MEDS: MELATONIN 3 MG TABLET PO SCH (22:00)
[2023-06-05] MEDS: DONEPEZIL 5 MG TABLET PO SCH (23:15)
[2023-06-05] MEDS: SIMVASTATIN 10 MG TABLET PO SCH (23:15)
[2023-06-06] MEDS: LORAZEPAM 0.5 MG TABLET PO PRN (04:49)
[2023-06-06 08:00] VITALS: BP 119/79; TEMP 97.9; O2SAT 98
[2023-06-06] MEDS: PANTOPRAZOLE 40 MG TABLET.DR PO SCH (08:02)
[2023-06-06 08:10] LABS: BASOPHILS % (AUTO) 0.2 % (0.0-2.0); EOSINOPHILS # (AUTO) 0.6 K/uL (0.0-0.7); EOSINOPHILS % (AUTO) 9.3 % (0.0-6.0); HEMATOCRIT 34 % (33-45); HEMOGLOBIN 11.5 g/dL (11.5-14.8); LYMPHOCYTES # (AUTO) 0.9 K/uL (0.8-4.8); LYMPHOCYTES % (AUTO) 13.5 % (20.0-44.0); MEAN CORPUSCULAR HEMOGLOBIN 29 PG (26.0-33.0); MEAN CORPUSCULAR HGB CONC 34 g/dl (31.0-36.0); MEAN CORPUSCULAR VOLUME 87 fL (82-100); MONOCYTES # (AUTO) 0.5 K/uL (0.1-1.30); MONOCYTES % (AUTO) 7.5 % (2.0-12.0); NEUTROPHILS # (AUTO) 4.7 K/uL (1.8-8.9); NEUTROPHILS % (AUTO) 69.5 % (43.0-81.0); PLATELET COUNT (AUTO) 271 K/uL (150-450); RED BLOOD CELL COUNT(AUTO) 3.96 MIL/uL (4.0-5.2); RED CELL DISTRIBUTION WIDTH 16.3 % (11.5-15.0); WHITE BLOOD COUNT (AUTO) 6.8 K/uL (4.3-11.0)
[2023-06-06 08:38] LABS: CALCIUM, SERUM 9.3 mg/dL (8.5-10.1); CREATININE 0.9 mg/dL (0.6-1.3); MAGNESIUM 2.2 mg/dL (1.8-2.4); PHOSPHORUS 2.9 mg/dL (2.5-4.9); POTASSIUM 2.9 mmol/L (3.5-5.1)
[2023-06-06] MEDS: FERROUS SULFATE (325 MG) 325 MG/TAB TABLET PO SCH (09:09)
[2023-06-06] MEDS: DOCUSATE SODIUM 100 MG CAPSULE PO SCH (09:09)
[2023-06-06] MEDS: LEVETIRACETAM (250 MG) 250 MG TABLET PO SCH (09:09)
[2023-06-06] MEDS: SERTRALINE HCL 50 MG TABLET PO SCH (09:09)
[2023-06-06] MEDS: EZETIMIBE 10 MG TABLET PO SCH (09:09)
[2023-06-06] MEDS: ANASTROZOLE 1 MG TABLET PO SCH (09:09)
[2023-06-06] MEDS: AMLODIPINE BESYLATE 5 MG TABLET PO SCH (09:10)
[2023-06-06] MEDS: POTASSIUM CHLORIDE 20 MEQ TAB.PRT.SR PO ONE (10:04)
[2023-06-06] MEDS ORDERED: HALOPERIDOL DECANOATE IM 100 MG/ML AMPUL IM ONE (12:00)
[2023-06-06] MEDS: HALOPERIDOL LACTATE INJ 5 MG/ML VIAL IM ONE (12:16)
[2023-06-06 16:00] VITALS: BP 140/64; TEMP 99; O2SAT 98
[2023-06-06] MEDS ORDERED: LORAZEPAM 0.5 MG TABLET PO PRN (17:00)
[2023-06-07] MEDS: LORAZEPAM 1 MG TABLET PO PRN (05:54)
[2023-06-07 08:00] VITALS: BP 119/76; TEMP 98.6; O2SAT 100
[2023-06-07 08:44] LABS: BASOPHILS % (AUTO) 0.5 % (0.0-2.0); EOSINOPHILS # (AUTO) 0.2 K/uL (0.0-0.7); EOSINOPHILS % (AUTO) 2.5 % (0.0-6.0); HEMATOCRIT 37 % (33-45); HEMOGLOBIN 12.4 g/dL (11.5-14.8); LYMPHOCYTES # (AUTO) 1.4 K/uL (0.8-4.8); LYMPHOCYTES % (AUTO) 15.8 % (20.0-44.0); MEAN CORPUSCULAR HEMOGLOBIN 29 PG (26.0-33.0); MEAN CORPUSCULAR HGB CONC 34 g/dl (31.0-36.0); MEAN CORPUSCULAR VOLUME 85 fL (82-100); MONOCYTES # (AUTO) 0.8 K/uL (0.1-1.30); MONOCYTES % (AUTO) 8.5 % (2.0-12.0); NEUTROPHILS # (AUTO) 6.5 K/uL (1.8-8.9); NEUTROPHILS % (AUTO) 72.7 % (43.0-81.0); PLATELET COUNT (AUTO) 313 K/uL (150-450); RED CELL DISTRIBUTION WIDTH 16.5 % (11.5-15.0)
[2023-06-07 08:49] LABS: CALCIUM, SERUM 9.6 mg/dL (8.5-10.1); CARBON DIOXIDE 23 mmol/L (21-32); CHLORIDE 107 mmol/L (98-107); CREATININE 0.9 mg/dL (0.6-1.3); GLUCOSE 118 mg/dL (74-106); POTASSIUM 3.2 mmol/L (3.5-5.1); SODIUM SERUM 141 mmol/L (136-145); UREA NITROGEN, BLOOD 11 mg/dL (7-18)
[2023-06-07] MEDS: POTASSIUM CHLORIDE 20 MEQ TAB.PRT.SR PO SCH (09:23)
[2023-06-07] MEDS: QUETIAPINE FUMARATE 25 MG TABLET PO SCH (12:48)
[2023-06-07 16:00] VITALS: BP 111/43; TEMP 97.8; O2SAT 97
[2023-06-08 07:12] LABS: ALBUMIN 3.5 g/dL (3.4-5.0); BILIRUBIN,DIRECT 0.1 mg/dL (0.0-0.2); BILIRUBIN,TOTAL 0.4 mg/dL (0.2-1.0); CALCIUM, SERUM 9.4 mg/dL (8.5-10.1); CREATININE 0.9 mg/dL (0.6-1.3); POTASSIUM 3.3 mmol/L (3.5-5.1); TOTAL PROTEIN, SERUM 6.8 g/dL (6.4-8.2)
[2023-06-08 07:21] LABS: BASOPHILS % (AUTO) 0.6 % (0.0-2.0); EOSINOPHILS # (AUTO) 0.5 K/uL (0.0-0.7); EOSINOPHILS % (AUTO) 6.7 % (0.0-6.0); HEMATOCRIT 32 % (33-45); HEMOGLOBIN 11.1 g/dL (11.5-14.8); LYMPHOCYTES # (AUTO) 1.3 K/uL (0.8-4.8); LYMPHOCYTES % (AUTO) 17.8 % (20.0-44.0); MEAN CORPUSCULAR HEMOGLOBIN 29 PG (26.0-33.0); MEAN CORPUSCULAR HGB CONC 34 g/dl (31.0-36.0); MEAN CORPUSCULAR VOLUME 84 fL (82-100); MONOCYTES # (AUTO) 0.7 K/uL (0.1-1.30); MONOCYTES % (AUTO) 9.3 % (2.0-12.0); NEUTROPHILS # (AUTO) 4.8 K/uL (1.8-8.9); NEUTROPHILS % (AUTO) 65.6 % (43.0-81.0); PLATELET COUNT (AUTO) 278 K/uL (150-450); RED BLOOD CELL COUNT(AUTO) 3.84 MIL/uL (4.0-5.2); RED CELL DISTRIBUTION WIDTH 15.9 % (11.5-15.0); WHITE BLOOD COUNT (AUTO) 7.3 K/uL (4.3-11.0)
[2023-06-08 08:41] VITALS: BP 131/62
[2023-06-08] MEDS: POTASSIUM CHLORIDE 20 MEQ TAB.PRT.SR PO ONE (08:41)
== END 2023-06-08 16:06 | DRG 640 ==
LOC: ER 15:35 → TELE 20:39 → MED 22:11
PROVIDERS: ADMIT Internal Medicine; ATTEND Internal Medicine
DX: E87.6 Hypokalemia (principal); G93.41 Metabolic encephalopathy; J81.1 Chronic pulmonary edema; F03.918 Unspecified dementia, unspecified severity, with other behavioral disturbance; F03.93 Unspecified dementia, unspecified severity, with mood disturbance; F33.2 Major depressive disorder, recurrent severe without psychotic features; F03.90 Unspecified dementia, unspecified severity, without behavioral disturbance, psychotic disturbance, mood disturbance, and anxiety; I10 Essential (primary) hypertension; K44.9 Diaphragmatic hernia without obstruction or gangrene; M47.819 Spondylosis without myelopathy or radiculopathy, site unspecified; Z20.822 Contact with and (suspected) exposure to COVID-19; W18.30XA Fall on same level, unspecified, initial encounter; S00.03XA Contusion of scalp, initial encounter; Z79.899 Other long term (current) drug therapy; Z88.0 Allergy status to penicillin; Z88.2 Allergy status to sulfonamides; Z88.6 Allergy status to analgesic agent; Z88.5 Allergy status to narcotic agent; Z79.811 Long term (current) use of aromatase inhibitors; Z85.3 Personal history of malignant neoplasm of breast; E78.5 Hyperlipidemia, unspecified; G40.909 Epilepsy, unspecified, not intractable, without status epilepticus; R79.89 Other specified abnormal findings of blood chemistry; Z85.9 Personal history of malignant neoplasm, unspecified; Y92.092 Bedroom in other non-institutional residence as the place of occurrence of the external cause; M12.9 Arthropathy, unspecified
CPT/HCPCS: 36415; 70450-TC; 71250-TC; 72125-TC; 80048-TC; 80076-TC; 83690-TC; 83735-TC; 84100-TC; 84484-TC; 85025-TC; 87086-TC; 97110-TC; 97116-TC; 97530-TC; G0378; J1630; J2060